=== PATIENT | male | born 1955 | race Caucasian/White ===

== ENCOUNTER 2023-02-28 18:58 | Emergency (ER) | payer MEDICARE ==
[~2023-02-28] VITALS: Ht 177.8 cm; Wt 76.2 kg
[2023-02-28 19:41] LABS: BASOPHILS ABSOLUTE AUTO 0.05 K/mm3 (0.00-0.23); BASOPHILS PERCENT AUTO 0 % (0-2); EOSINOPHILS ABSOLUTE AUTO 0.02 K/mm3 (0.00-0.68); EOSINOPHILS PERCENT AUTO 0 % (0-6); Hematocrit 46.7 % (37.0-53.0); Hemoglobin 15.6 g/dL (13.5-17.5); IMMATURE GRAN ABSOLUTE AUTO 0.04 K/mm3 (0.00-0.10); IMMATURE GRAN PERCENT AUTO 0 % (0-1); LYMPHOCYTES ABSOLUTE AUTO 1.39 K/mm3 (0.84-5.20); LYMPHOCYTES PERCENT AUTO 11 % (21-46); MONOCYTES ABSOLUTE AUTO 1.06 K/mm3 (0.16-1.47); MONOCYTES PERCENT AUTO 8 % (4-13); Mean Corpuscular HGB 30.6 pg (26.0-34.0); Mean Corpuscular HGB Conc 33.4 g/dL (31.5-36.5); Mean Corpuscular Volume 92 fL (80-100); Mean Platelet Volume 9.3 fL (9.1-12.4); NEUTROPHILS ABSOLUTE AUTO 10.38 K/mm3 (1.96-9.15); NEUTROPHILS PERCENT AUTO 80 % (41-73); Platelet Count 267 K/mm3 (150-400); RDW Coefficient Variation 12.5 % (11.7-14.2); RDW Standard Deviation 42.3 fL (35.1-46.3); White Blood Cell Count 12.94 K/mm3 (4.00-11.30)
[2023-02-28 19:54] LABS: Albumin, Blood 3.7 g/dL (3.4-5.0); Bilirubin, Total 0.6 mg/dL (0.1-1.0); Bun/Creatinine Ratio 12.6 (12.0-20.0); Creatinine, Blood 0.64 mg/dL (0.60-1.20); Globulin, Blood 3.7 g/dL (2.2-4.0); Total Protein, Blood 7.4 g/dL (6.4-8.2)
[2023-02-28] MEDS ORDERED: IBUP800 PO (20:51)
[2023-02-28] MEDS ORDERED: ONDA4ODT MM (20:51)
[2023-02-28 20:58] VITALS: BP 155/82
== END 2023-02-28 20:58 | disposition home or self-care (01) ==
LOC: ER 18:58
PROVIDERS: Emergency Medicine
DX: K80.70 Calculus of gallbladder and bile duct without cholecystitis without obstruction (principal); N40.0 Benign prostatic hyperplasia without lower urinary tract symptoms
CPT/HCPCS: 71045; 80053; 84484; 85025; 93005; 93010; 96374; 99285-25; J2270; J2405

== ENCOUNTER 2023-07-26 06:24 | Day surgery (SDC) | payer MEDICARE ==
[2023-07-26] VITALS (15 sets, daily range): BP systolic 97–136; BP diastolic 77–104
[~2023-07-26] VITALS: Ht 175.3 cm; Wt 77.7 kg
[~2023-07-26 06:24] MED LIST: CeFAZolin Sodium 2,000 MG in NS 100 ML IV SCH; IBUP800 PO; LISI20 PO; Lactated Ringer's 1,000 ML IV SCH; ONDA4ODT MM; PANT40 PO; PROP10 PO; TAMS.4ER PO
--- NOTE | 2023-07-26 07:00 | NUR ---
Ambulatory in Day Surgery History, Chart, Medications and Allergies reviewed before start of procedure.Lungs clear T/O to Auscultation. Patient confirms NPO status and agrees with scheduled surgery. Surgical site prepped with 2% Chlorhexidine cloth wipe X4. Patient States Post-Procedure ride home has been arranged.
[2023-07-26] MEDS ORDERED: propofoL 0 ML IV ONE (07:07)
[2023-07-26] MEDS ORDERED: FentaNYL Citrate 50 MCG/ML 2 ML Injection ONE ×2 (07:07→09:45)
[2023-07-26] MEDS ORDERED: Sugammadex Sodium 200 MG/2ML SDV (100 MG/ML) ONE (07:07)
[2023-07-26] MEDS ORDERED: Ondansetron HCl 2 MG / ML 2ML Vial ONE ×2 (07:10→11:12)
[2023-07-26] MEDS ORDERED: Rocuronium Bromide 10 MG/ML 5ML Injection IV ONE ×2 (07:10→08:26)
[2023-07-26] MEDS ORDERED: Dexamethasone Sod Phos 10 MG/ML 1ML VIAL ONE (07:10)
[2023-07-26] MEDS ORDERED: Lidocaine HCl 1% 5 ML SYR INJ ONE (07:15)
[2023-07-26] MEDS ORDERED: Midazolam HCl 1MG / ML 2ML Vial IV PRN (07:15)
[2023-07-26 07:22] LABS: BASOPHILS ABSOLUTE AUTO 0.08 K/mm3 (0.00-0.23); BASOPHILS PERCENT AUTO 1 % (0-2); EOSINOPHILS ABSOLUTE AUTO 0.18 K/mm3 (0.00-0.68); EOSINOPHILS PERCENT AUTO 3 % (0-6); Hematocrit 44.2 % (37.0-53.0); Hemoglobin 14.9 g/dL (13.5-17.5); IMMATURE GRAN ABSOLUTE AUTO 0.01 K/mm3 (0.00-0.10); IMMATURE GRAN PERCENT AUTO 0 % (0-1); LYMPHOCYTES ABSOLUTE AUTO 1.75 K/mm3 (0.84-5.20); LYMPHOCYTES PERCENT AUTO 25 % (21-46); MONOCYTES ABSOLUTE AUTO 1.16 K/mm3 (0.16-1.47); MONOCYTES PERCENT AUTO 16 % (4-13); Mean Corpuscular HGB 30.3 pg (26.0-34.0); Mean Corpuscular HGB Conc 33.7 g/dL (31.5-36.5); Mean Corpuscular Volume 90 fL (80-100); Mean Platelet Volume 9.2 fL (9.1-12.4); NEUTROPHILS ABSOLUTE AUTO 3.94 K/mm3 (1.96-9.15); NEUTROPHILS PERCENT AUTO 55 % (41-73); Platelet Count 280 K/mm3 (150-400); RDW Coefficient Variation 12.8 % (11.7-14.2); RDW Standard Deviation 42.4 fL (35.1-46.3); Red Blood Cell Count 4.92 M/mm3 (4.30-5.90); White Blood Cell Count 7.12 K/mm3 (4.00-11.30)
[2023-07-26] MEDS ORDERED: Bupivacaine 0.5% HCl 5 MG/ML 30MLVIAL ONE (07:26)
[2023-07-26] MEDS ORDERED: Etomidate 2MG / ML 10ML Vial ONE (07:32)
[2023-07-26 07:46] LABS: Albumin, Blood 3.6 g/dL (3.4-5.0); Albumin/Globulin Ratio 0.9 (0.8-1.8); Bilirubin, Total 0.3 mg/dL (0.1-1.0); Bun/Creatinine Ratio 38.2 (12.0-20.0); Calcium, Blood 8.9 mg/dL (8.5-10.1); Creatinine, Blood 0.81 mg/dL (0.60-1.20); Globulin, Blood 3.8 g/dL (2.2-4.0); Potassium, Blood 4.2 mmol/L (3.5-5.5); Total Protein, Blood 7.4 g/dL (6.4-8.2)
[2023-07-26] MEDS ORDERED: ePHEDrine Sulfate 50 MG/ML 1ML Injection ONE (07:59)
[2023-07-26] MEDS ORDERED: Ketorolac Tromethamine 30mg Vial ONE (08:07)
[2023-07-26] MEDS ORDERED: Glycopyrrolate 0.2 MG/ML 5ML VIAL ONE (09:19)
[2023-07-26] MEDS ORDERED: Neostigmine Methylsulfate 5MG/5ML SYR ONE (09:19)
[2023-07-26] MEDS ORDERED: FentaNYL Citrate 50 MCG/ML 2 ML Injection IV PRN ×2 (10:00→10:45)
[2023-07-26] MEDS ORDERED: Lactated Ringer's 1,000 ML IV SCH (10:00)
[2023-07-26] MEDS ORDERED: HYDROmorphone HCl/Pf 1MG SYR ONE ×2 (10:01→11:18)
--- NOTE | 2023-07-26 10:40 | NUR ---
ARRIVAL TO SURGICAL UNIT VIA GOURNEY, SLID TO HOSPITAL BED. VERY UPSET & ANGRY THAT HIS GALLBLADDER IS STILL IN HIM. COMPLAINTS OF REMAINING NPO. ABD DISTENDED, FIRM. HYPOACTIVE BT. LUNGS CLEAR. SANDRA COMPRESSED w/ NO DRNG IN BULB & ONLY SS IN FIRST PART OF TUBING. CHG DRSG ON SANDRA SITE w/ SCANT DRNG.
[2023-07-26] MEDS ORDERED: Ondansetron HCl 2 MG / ML 2ML Vial IV PRN (11:35)
[2023-07-26] MEDS ORDERED: HYDROmorphone HCl/Pf 1MG SYR IV PRN (11:35)
--- NOTE | 2023-07-26 11:44 | NUR ---
DISCHARGE VIA EMS. ABD UNCHANGED & NO DRAINAGE FROM SANDRA BESIDES IN TUBING. C/O BACK & ABD PAIN & CONTINUED NAUSEA. NO EMESIS.
[2023-07-26] MEDS ORDERED: Piperacillin/Tazobactam Sod 3.375 GM in NS 100 ML IV SCH (12:00)
[2023-07-27] MEDS ORDERED: Pantoprazole Sodium 40 MG Injection IV SCH (06:00)
== END 2023-07-26 11:45 | disposition short-term general hospital (02) ==
LOC: ORSCMMR 06:24 → ORD 07:30 → ORSCMMR 07:30 → SURS 10:28 → ORSCMMR 11:45
PROVIDERS: Surgery
PROC: 0FT44ZZ Resection of Gallbladder, Percutaneous Endoscopic Approach (ICD-10-PCS; principal; 2023-07-26 07:30)
DX: K80.20 Calculus of gallbladder without cholecystitis without obstruction (principal); S36.13XA Injury of bile duct, initial encounter; I10 Essential (primary) hypertension; K21.9 Gastro-esophageal reflux disease without esophagitis; Z79.899 Other long term (current) drug therapy
CPT/HCPCS: 74300; 80053; 85025; C1729; J0690; J1100; J1170; J1885; J2250; J2405; J2543; J2704; J2710; J3010; J7120